=== PATIENT | male | born 1990 | race American Indian/Alaskan Native ===

== ENCOUNTER 2019-11-02 11:36 | Emergency (ER) | payer SELFPAY ==
[2019-11-02 11:55] VITALS: BP 112/55
--- NOTE | 2019-11-02 11:57 | Emergency Department Report ---
Chief Complaint: Upper Respiratory Infection Stated Complaint: FLU SX Time Seen by Provider: 11/02/19 11:53 - HPI History of Present Illness: pt presents with a dry cough that began last night no fever itchy dry throat, discomfort with coughing denies any vomiting or diarrhea no SOB no CP PMHx asthma states he uses an inhaler as needed and has one at home no allergies to meds +tobacco vitals are normal on exam: non toxic appearing, no acute distress normal oropharynx normal TMs and canals breath sounds are clear bilaterally, no w/r/r heart sounds are normal, no gallops, rubs, murmurs symptoms and examination consistent with viral URI unlikely influenza as patient does not have defining symptoms or fever no clinical s/sx of PNA pt is presenting with a non medical emergency at this time medical screening examination performed and there is no threat to life or limb will refer pt to a PCP, discussed the importance of oral rehydration and supportive care pt given strict return precautions MSE screening note: Focused history and physical exam performed. ED Disposition for MSE Clinical Impression: Viral illness Disposition: MED SCREENING EXAM-LEFT Is pt being admited?: No Does the pt Need Aspirin: No Condition: Stable Instructions: Viral Syndrome (ED) Additional Instructions: please increase your fluid intake over the next several days. may alternate tylenol then ibuprofen every 4 hours as needed for a fever or body aches. may take over the counter cough/cold medication such as mucinex or robitussin. follow up with a primary care doctor in the next 2-3 days. return to the emergency room for any new or worsening symptoms. Referrals: HERLINDA BOWERS MD [Staff Physician] - 2-3 Days [facility] [Outside] - 2-3 Days [facility] [Outside] - 2-3 Days Time of Disposition: 12:06 Print Language: SERBIAN
== END 2019-11-02 12:38 | disposition left against medical advice (07) ==
LOC: ED 11:36
DX: B34.9 Viral infection, unspecified (principal); J45.909 Unspecified asthma, uncomplicated
CPT/HCPCS: 99281